=== PATIENT | male | born 1980 | race African-American/Black ===

== ENCOUNTER → 2017-09-24 | Outpatient (CLI) | payer BC ==
[~2017-09-24] MED LIST: IBUPROFEN 800800 MG PO; NOHOMEMEDICATIONS; NORFLEX100 MG PO; PERCOCET 5-3251 EACH PO; ZOFRAN ODT8 MG PO
== END ==
LOC: RAD 15:42
DX: R07.89 Other chest pain (principal)

== ENCOUNTER 2017-10-16 23:19 | Emergency (ER) | payer BC ==
[~2017-10-16] VITALS: Ht 182.9 cm; Wt 99.8 kg
[~2017-10-16 23:19] MED LIST changes: -ZOFRAN ODT8 MG PO
[2017-10-17] MEDS ORDERED: ZOFRAN ODT8 MG PO (00:41)
== END 2017-10-17 00:53 | disposition home or self-care (01) ==
LOC: ER 23:19
DX: K52.9 Noninfective gastroenteritis and colitis, unspecified (principal)

== ENCOUNTER → 2019-05-02 | Outpatient (CLI) | payer BC, OTHER ==
[~2019-05-02] MED LIST changes: +ZOFRAN ODT8 MG PO
== END ==
LOC: RAD 11:58
DX: R07.89 Other chest pain (principal)